=== PATIENT | female | born 1975 | race Caucasian/White ===

== ENCOUNTER 2016-09-02 20:12 | Emergency (ER) | payer SELFPAY ==
[~2016-09-02] VITALS: Ht 158.8 cm; Wt 61.4 kg
[2016-09-02 20:29] VITALS: Ht 158.8 cm; Wt 61.4 kg
[2016-09-02] MEDS ORDERED: MAGNESIUM SULFATE 2 GM, MULTIVITAMINS 10 ML, THIAMINE 100 MG, FOLIC ACID 1 MG in SOD CH... IV STA (21:43)
[2016-09-02 22:11] LABS: ADD SCAN DIFF NO
[2016-09-02 22:18] LABS: BASOPHILS % 0.5 % (0.0-2.0); EOSINOPHILS % 0.6 % (0.0-7.0); HEMATOCRIT 37.5 % (37.0-47.0); HEMOGLOBIN 12.3 g/dl (12.0-16.0); LYMPHOCYTES # 2.2 10^3/ul (0.8-2.9); LYMPHOCYTES % 33.4 % (15.0-51.0); MEAN CORPUSCULAR HGB CONC 32.8 g/dl (32.0-37.0); MEAN CORPUSCULAR VOLUME 100.5 fl (82.0-101.0); MEAN PLATELET VOLUME 9.8 fl (7.4-10.4); MONOCYTE # 0.6 10^3/ul (0.3-0.9); MONOCYTES % 9.6 % (0.0-11.0); NEUTROPHIL # 3.6 10^3/ul (1.6-7.5); NEUTROPHILS % 55.1 % (39.0-77.0); PLATELET COUNT 262 10^3/UL (140-415); RED BLOOD COUNT 3.73 10^6/ul (4.20-5.40); RED CELL DISTRIBUTION WIDTH 15.6 % (11.5-14.5); WHITE BLOOD COUNT 6.6 10^3/ul (4.8-10.8)
[2016-09-02 22:37] LABS: BILIRUBIN,INDIRECT 0.1 mg/dl (0-1.1); BILIRUBIN,TOTAL 0.1 mg/dl (0.2-1.3); CALCIUM 9.6 mg/dl (8.4-10.2); POTASSIUM 4.6 mmol/L (3.5-5.1); TOTAL PROTEIN 7.5 g/dl (6.1-8.1)
[2016-09-02] MEDS ORDERED: LORAZEPAM 2 MG INJ IV ONE (23:30)
--- NOTE | 2016-09-02 23:31 | ERD ---
ER Documentation Chief Complaint Date/Time DATE: 09/02/16 TIME: 21:00 Chief Complaint ETOH intoxication, ALOC,hx pancreatitis & ETOH abuse HPI 41-year-old female brought to the ED via ambulance for alcohol intoxication. Patient admits to significant alcohol consumption tonight and just wants to sleep. Does not want to be in the hospital. She denies chest pain, shortness of breath, abdominal pain, nausea or vomiting. No hematemesis, hematochezia or melanotic stools. Scheduled to enter rehab the day after tomorrow. Denies tremors, headache or visual changes. No hallucinations, suicidal or homicidal ideations. No neck or back pain. No fevers or chills ROS All systems reviewed and are negative except as per history of present illness. Allergies Allergies: Coded Allergies: No Known Allergy (Unverified , 09/02/16) PMhx/Soc Reviewed in chart Medical and Surgical Hx: pt denies Surgical Hx History of Surgery: No Anesthesia Reaction: No Hx Neurological Disorder: Yes (seizure disorder) Hx Respiratory Disorders: No Hx Cardiac Disorders: Yes (HTN) Hx Psychiatric Problems: Yes (depression) Hx Miscellaneous Medical Probl: Yes (alcohol abuse, pancreatitis) Hx Alcohol Use: Yes ("lots and lots" today) Hx Substance Use: Yes (last use "weeks ago") Hx Tobacco Use: Yes Smoking Status: Current every day smoker FmHx Not relevant to presenting of Physical Exam Vitals Vital Signs Date Time Temp Pulse Resp B/P Pulse Ox O2 Delivery O2 Flow Rate FiO2 09/02/16 20:29 99.0 103 18 103/92 94 Physical Exam Const: Alert, no acute distress Head: Atraumatic Eyes: Normal Conjunctiva. Horizontal nystagmus ENT: Normal External Ears, Nose and Mouth. Neck: Full range of motion.. Nontender Resp: Clear to auscultation bilaterally Cardio: Regular rate and rhythm, no murmurs Abd: Soft, non tender, non distended. Normal bowel sounds Skin: No petechiae or rashes Back: No midline or flank tenderness Ext: No cyanosis, or edema Neur: Awake and alert. No tremors. Psych: Cooperative. Oriented. Goal directed speech. Result Diagram: 09/02/16214709/02/162147 Results 24 hrs Laboratory Tests Test 09/02/16 21:48 White Blood Count 6.610^3/ul Red Blood Count 3.7310^6/ul Hemoglobin 12.3g/dl Hematocrit 37.5% Mean Corpuscular Volume 100.5fl Mean Corpuscular Hemoglobin 33.0pg Mean Corpuscular Hemoglobin Concent 32.8g/dl Red Cell Distribution Width 15.6% Platelet Count 50743^3/UL Mean Platelet Volume 9.8fl Neutrophils % 55.1% Lymphocytes % 33.4% Monocytes % 9.6% Eosinophils % 0.6% Basophils % 0.5% Nucleated Red Blood Cells % 0.0/100WBC Neutrophils # 3.610^3/ul Lymphocytes # 2.210^3/ul Monocytes # 0.610^3/ul Eosinophils # 0.010^3/ul Basophils # 0.010^3/ul Nucleated Red Blood Cells # 0.010^3/ul Sodium Level 148mmol/L Potassium Level 4.6mmol/L Chloride Level 106mmol/L Carbon Dioxide Level 23mmol/L Anion Gap 24 Blood Urea Nitrogen 21mg/dl Creatinine 1.00mg/dl Glucose Level 88mg/dl Calcium Level 9.6mg/dl Total Bilirubin 0.1mg/dl Direct Bilirubin 0.00mg/dl Indirect Bilirubin 0.1mg/dl Aspartate Amino Transf (AST/SGOT) 69IU/L Alanine Aminotransferase (ALT/SGPT) 70IU/L Alkaline Phosphatase 72IU/L Total Protein 7.5g/dl Albumin 5.0g/dl Globulin 2.50g/dl Albumin/Globulin Ratio 2.00 Ethyl Alcohol Level 282.0mg/dl Current Medications Medications (Trade) Dose Ordered Sig/Trisha Route PRN Reason Start Time Stop Time Status Last Admin Dose Admin Magnesium Sulfate/ Multivitamins/ Thiamine HCl/ Folic Acid/Sodium Chloride (Magnesium Sulfate/Mvi Adult/ Vitamin B1/Folic Acid/NS) 1,015.2 ml @ 500 mls/ hr Q2H2M STAT IV 09/02/16 21:43 09/02/16 23:44 DC 09/02/16 22:04 Lorazepam (Ativan) 1 mg ONCE ONCE IV 09/02/16 23:30 09/02/16 23:31 DC 09/02/16 23:13 Procedures/MDM DOCUMENTS REVIEWED: ED nurse, prior records, prior ED MEDICAL DECISION MAKIN-year-old female brought to the ED via ambulance for alcohol intoxication. Patient with a history of chronic alcohol abuse scheduled at the rehab. No abdominal pain, signs of pancreatitis or GI bleeding. No head injury or indication for neuroimaging. Patient slept in the ED for several hours and upon removal awakening was mildly agitated. No signs or symptoms of DTs. Patient eloped a 23:35. Departure Diagnosis: Primary Impression: Alcoholic intoxication Complication of substance-induced condition: uncomplicated Qualified Code: F10.120 - Alcoholic intoxication, uncomplicated Additional Impressions: Chronic alcohol abuse Dehydration Condition: Serious DAYTON ROBLES MD Sep 02, 2016 23:31 DAYTON ROBLES MD Sep 02, 2016 23:31
== END 2016-09-03 00:21 | disposition left against medical advice (07) ==
LOC: E/R 20:12
DX: F10.120 Alcohol abuse with intoxication, uncomplicated (principal); E86.0 Dehydration; I10 Essential (primary) hypertension; R40.2142 Coma scale, eyes open, spontaneous, at arrival to emergency department; R40.2242 Coma scale, best verbal response, confused conversation, at arrival to emergency department; R40.2362 Coma scale, best motor response, obeys commands, at arrival to emergency department; F17.210 Nicotine dependence, cigarettes, uncomplicated
CPT/HCPCS: 36415; 80053; 80306; 85025; 96374; 96375; 99284; J2060; J3411; J3475; J7030